=== PATIENT | male | born 1995 | race Caucasian/White ===

== ENCOUNTER 2019-11-29 12:50 | Emergency (ER) | payer BC ==
[2019-11-29] MEDS ORDERED: Tetracaine 0.5% OPTH.SOL 4 ML* 1 DROP BTL BOTH EYES ONE (12:58)
[2019-11-29] MEDS ORDERED: Fluorescein Sodium TOPICAL* 1 MG TEST STRIP OPHTHALMIC ONE (12:58)
--- NOTE | 2019-11-29 13:52 | UC ---
General HPI - HPI Summary HPI Summary: States was at home grinding hot metal when he thinks a piece got in his right eye. He immediately washed it out but still feels stinging and burning. Feels like his vision is off. Never has had an issue with his eye in the past. - History of Current Complaint Chief Complaint: Brittney Stated Complaint: FOREIGN BODY IN EYE Time Seen by Provider: 11/29/19 13:07 Pain Intensity: 4 - Allergy/Home Medications Allergies/Adverse Reactions: Allergies Allergy/AdvReac Type Severity Reaction Status Date / Time azithromycin [From Zithromax] Allergy Intermediate Unknown Verified 11/29/19 13: 23 Reaction Details amoxicillin Allergy Unknown Verified 11/29/19 13:23 Reaction Details clavulanic acid Allergy Unknown Verified 11/29/19 13:23 [From Augmentin] Reaction Details Home Medications: Home Medications Polymyx/Trimethoprim OPTH* [Polytrim OPHTH*] 2 drop RIGHT EYE Q8HR #1 btl [Rx] PMH/Surg Hx/FS Hx/Imm Hx Previously Healthy: Yes - Surgical History Surgical History: Yes Surgery Procedure, Year, and Place: Appendics. Right hand surgery. T&A - Social History Alcohol Use: Occasionally Substance Use Type: None Smoking Status (MU): Never Smoked Tobacco Review of Systems All Other Systems Reviewed And Are Negative: Yes Physical Exam Triage Information Reviewed: Yes Appearance: Well-Appearing Vital Signs: Initial Vital Signs Temp 99.1 F 11/29/19 13:18 Pulse 70 11/29/19 13:18 Resp 18 11/29/19 13:18 BP 122/75 11/29/19 13:18 Pulse Ox 99 11/29/19 13:18 Eyes: Positive: Other: - mild conjunctival injection in right - no gross visualization of foreign body and no corneal abrasion seen either. Right eyelid inverted and small speck removed left eye: normal ENT: Positive: Normal ENT inspection Course/Dx - Course Course Of Treatment: This is a 24 yr old with foreign body in right eye small speck removed after tetracaine eye drops were placed Flurescin placed - no corneal abrasion seen under johnson lamp Plan Recommend following up at Dr. Pino's office today at 4:15 [phone] Start antibiotic eye drops as prescribed if not started by Dr. Pino's office IF symptoms persist or worsen, recommend follow up with eye doctor or return to urgent care - Diagnoses Provider Diagnosis: Foreign body, eye Discharge ED - Sign-Out/Discharge Documenting (check all that apply): Patient Departure All imaging exams completed and their final reports reviewed: No Studies - Discharge Plan Condition: Fair Disposition: HOME Prescriptions: Polymyx/Trimethoprim OPTH* [Polytrim OPHTH*] 2 drop RIGHT EYE Q8HR #1 btl Patient Education Materials: Eye Foreign Body (ED) Referrals: No Primary Care Phys,NOPCP [Primary Care Provider] - [facility] [Outside] Additional Instructions: Recommend following up at Dr. Pino's office today at 4:93 - [phone] Start antibiotic eye drops as prescribed if not started by Dr. Pino's office IF symptoms persist or worsen, recommend follow up with eye doctor or return to urgent care - Billing Disposition and Condition Condition: FAIR Disposition: Home
== END 2019-11-29 14:25 | disposition home or self-care (01) ==
LOC: UCEAST 12:50
DX: T15.91XA Foreign body on external eye, part unspecified, right eye, initial encounter (principal); Z88.1 Allergy status to other antibiotic agents; Z88.0 Allergy status to penicillin; X58.XXXA Exposure to other specified factors, initial encounter; Y92.9 Unspecified place or not applicable
CPT/HCPCS: 99202; A9270-GY; G0463